=== PATIENT | male | born 2005 | race African-American/Black ===

== ENCOUNTER 2023-04-11 09:31 | Emergency (ER) | payer MEDICAID, OTHER ==
[~2023-04-11] VITALS: Ht 182.9 cm; Wt 53.4 kg
[2023-04-11 09:46] VITALS: BP 134/64; PULSE 89; RESP 18; TEMP 99.9; O2SAT 100
[2023-04-11] MEDS ORDERED: HYD500C PO (09:51)
== END 2023-04-11 09:58 | disposition home or self-care (01) ==
LOC: ER 09:31
DX: Z76.0 Encounter for issue of repeat prescription (principal)

== ENCOUNTER 2023-05-22 12:55 | Emergency (ER) | payer MEDICAID ==
[~2023-05-22] VITALS: Ht 185.4 cm; Wt 52.0 kg
[~2023-05-22 12:55] MED LIST: HYD500C PO
[2023-05-22 13:23] VITALS: BP 122/74; PULSE 99; RESP 18; TEMP 98; O2SAT 97
[2023-05-22] MEDS ORDERED: HYD500C PO ×3 (13:47→15:27)
== END 2023-05-22 13:50 | disposition home or self-care (01) ==
LOC: ER 12:55
DX: D57.1 Sickle-cell disease without crisis (principal); Z76.0 Encounter for issue of repeat prescription; Z88.6 Allergy status to analgesic agent

== ENCOUNTER 2024-05-18 03:40 | Emergency (ER) | payer OTHER ==
[~2024-05-18] VITALS: Ht 182.9 cm; Wt 54.4 kg
[2024-05-18 03:47] VITALS: BP 133/70; PULSE 65; RESP 20; O2SAT 96
[2024-05-18 04:45] LABS: Hemoglobin 9.7 g/dL (13.5-17.5); Mean Corpuscular Hemoglobin 34.6 pg (28.0-32.0); Mean Corpuscular Hgb Conc. 34.8 g/dL (32.0-36.0); Mean Corpuscular Volume 99.4 fL (80.0-100.0); Platelet Count (auto) 293 10^3/uL (140-450); Red Blood Cells 2.82 10^6/uL (4.5-5.90); White Blood Cell 13.6 10^3/uL (4.4-10.8)
[2024-05-18 04:46] LABS: Basophils % (manual) 0 (0.0-2.0); Blast Cells 0; Eosinophils % (manual) 0 (0-7); Metamyelocytes % 0; Promyelocytes % 0; Reactive Lymphocytes 0; Red Cell Distribution Width 20.6 % (11.8-14.3)
[2024-05-18 04:59] LABS: Alanine Aminotransferase 49 U/L (7-40); Albumin 4.5 g/dL (3.2-4.8); Alkaline Phosphatase 99 U/L (46-116); Anion Gap 8 (5-15); Aspartate Aminotransferase 54 U/L (13-40); BUN/Creatinine Ratio 11.5 (10.0-20.0); Blood Urea Nitrogen 7 mg/dL (9-23); Calcium 9.6 mg/dL (8.7-10.4); Carbon Dioxide 23 mmol/L (20-30); Chloride 105 mmol/L (98-107); Glucose 102 mg/dL (74-106); Potassium 3.8 mmol/L (3.5-5.1); Sodium 136 mmol/L (136-145)
[2024-05-18 05:00] LABS: Bilirubin, Total 4.1 mg/dL (0.2-1.0); Total Protein 8.2 g/dL (5.7-8.2)
[2024-05-18 05:54] LABS: Band Neutrophils % (manual) 2; Myelocytes % 3
[2024-05-18 05:55] LABS: Lymphocytes % (manual) 19 (10.0-50.0); Monocytes % (manual) 8 (0-12)
[2024-05-18 05:56] LABS: Anisocytosis Slight; Platelet Estimate Adequate; Stomatocytes Few; Target Cell MODERATE
[2024-05-18 05:57] LABS: Sickle Cells MODERATE
== END 2024-05-18 05:05 | disposition left against medical advice (07) ==
LOC: ER 03:40 → EDBD 03:40 → ER 05:05
DX: D57.00 Hb-SS disease with crisis, unspecified (principal); M54.9 Dorsalgia, unspecified; Z53.21 Procedure and treatment not carried out due to patient leaving prior to being seen by health care provider
CPT/HCPCS: 36415; 80053; 85007; 85027; 85045